=== PATIENT | male | born 1945 | race Caucasian/White ===

== ENCOUNTER 2021-09-10 07:08 | Day surgery (SDC) | payer OTHER ==
[~2021-09-10] VITALS: Ht 177.8 cm; Wt 80.2 kg
[2021-09-10] MEDS ORDERED: METF500 (07:50)
[2021-09-10] MEDS ORDERED: RAMI5 (07:52)
[2021-09-10] MEDS ORDERED: VITAMIN D310 MC4 (07:53)
[2021-09-10] MEDS ORDERED: ATOR20 (07:53)
[2021-09-10] MEDS ORDERED: [UNRECOGNIZED DRUG - CODE] (07:54)
== END 2021-09-10 09:29 | disposition home or self-care (01) ==
LOC: ORSCSDS 07:08
PROVIDERS: Surgery
PROC: 0DJD8ZZ Inspection of Lower Intestinal Tract, Via Natural or Artificial Opening Endoscopic (ICD-10-PCS; principal; 2021-09-10 08:30)
DX: Z12.11 Encounter for screening for malignant neoplasm of colon (principal); E78.5 Hyperlipidemia, unspecified; E11.9 Type 2 diabetes mellitus without complications; I10 Essential (primary) hypertension; Z87.891 Personal history of nicotine dependence; Z79.84 Long term (current) use of oral hypoglycemic drugs; Z79.899 Other long term (current) drug therapy
CPT/HCPCS: 82947; J2704; J7120

== ENCOUNTER 2025-02-14 06:27 | Observation (INO) | payer OTHER ==
[~2025-02-14] VITALS: Ht 180.3 cm; Wt 77.0 kg
[~2025-02-14 06:27] MED LIST: ATOR20 PO; METF500; RAMI5 PO; VITAMIN D310 MC4 PO; [UNRECOGNIZED DRUG - CODE] PO
[2025-02-14 06:47] LABS: BASOPHILS ABSOLUTE AUTO 0.04 K/mm3 (0.00-0.23); BASOPHILS PERCENT AUTO 0 % (0-2); EOSINOPHILS ABSOLUTE AUTO 0.32 K/mm3 (0.00-0.68); EOSINOPHILS PERCENT AUTO 2 % (0-6); Hematocrit 47.9 % (37.0-53.0); Hemoglobin 16.4 g/dL (13.5-17.5); IMMATURE GRAN ABSOLUTE AUTO 0.08 K/mm3 (0.00-0.10); IMMATURE GRAN PERCENT AUTO 0 % (0-1); LYMPHOCYTES ABSOLUTE AUTO 2.25 K/mm3 (0.84-5.20); LYMPHOCYTES PERCENT AUTO 12 % (21-46); MONOCYTES ABSOLUTE AUTO 0.66 K/mm3 (0.16-1.47); MONOCYTES PERCENT AUTO 4 % (4-13); Mean Corpuscular HGB Conc 34.2 g/dL (31.5-36.5); Mean Corpuscular Volume 95 fL (80-100); NEUTROPHILS ABSOLUTE AUTO 14.86 K/mm3 (1.96-9.15); NEUTROPHILS PERCENT AUTO 82 % (41-73); NRBC ABSOLUTE 0.00 K/mm3 (0.00-0.02); NRBC Auto 0.0 /100 WBC (0.0-0.2); Platelet Count 277 K/mm3 (150-400); RDW Coefficient Variation 12.2 % (11.7-14.2); RDW Standard Deviation 42.3 fL (35.1-46.3)
[2025-02-14 07:06] LABS: Alanine Aminotransfer (ALT/SGP 55.0 U/L (12-78); Albumin, Blood 4.3 g/dL (3.4-5.0); Albumin/Globulin Ratio 1.0 (0.8-1.8); Anion Gap 7.0 mmol/L (3-11); Aspartate Aminotrans (AST/SGOT 19.0 U/L (12-37); Bilirubin, Total 1.0 mg/dL (0.1-1.0); Blood Urea Nitrogen 21.0 mg/dL (8-24); CO2, Blood 28.0 mmol/L (21-32); Calcium, Blood 9.5 mg/dL (8.5-10.1); Chloride, Blood 105.0 mmol/L (98-108); Creatinine, Blood 1.02 mg/dL (0.60-1.20); Globulin, Blood 4.3 g/dL (2.2-4.0); Glucose, Blood 191.0 mg/dL (70-99); Potassium, Blood 4.2 mmol/L (3.5-5.5); Sodium, Blood 136.0 mmol/L (136-145); Total Protein, Blood 8.6 g/dL (6.4-8.2)
[2025-02-14] MEDS ORDERED: HydrALAZINE HCl 20 MG / ML 1ML Vial IV PRN (09:50)
[2025-02-14] MEDS ORDERED: FLU VACC TS2025(65UP)/MF59C/PF 45 MCG/0.5 ML SYRINGE IM SCH (09:50)
[2025-02-14 11:57] VITALS: BP 148/66
[2025-02-14 11:59] LABS: CHOL/HDL RATIO 2.7; Cholesterol 133 mg/dL (50-200); HDL Cholesterol 49 mg/dL (>39); LDL/HDL RATIO 1.3; Low Density Lipoprotein Chol 64 mg/dL (0-110); Triglycerides 99 mg/dL (30-160); Very Low Density Lipoprot Chol 19 mg/dL (6-32)
[2025-02-14] MEDS ORDERED: Aminophylline 250MG / 10ML 10 ML Vial ONE (13:27)
[2025-02-14] MEDS ORDERED: CefTRIAXone Sodium 1,000 MG in NS 100 ML IV SCH (15:00)
[2025-02-14] MEDS ORDERED: NS 250 ML IV PRN (15:35)
[2025-02-14 15:37] VITALS: BP 142/68
[2025-02-14] MEDS ORDERED: GLIP5 PO (15:49)
[2025-02-14] MEDS ORDERED: C COMPLEX1000 M1 PO (15:50)
[2025-02-14] MEDS ORDERED: JARDIANCE10 MG PO (15:50)
[2025-02-14] MEDS ORDERED: Aspir 8181 MG PO (15:51)
[2025-02-14] MEDS ORDERED: Insulin Regular 100 UNIT/ML 10ML Vial SC SCH (16:30)
[2025-02-14 17:55] LABS: Influenza A/2009-H1 Not Detected (NOT DETECT); SARS-Cov-2 (COVID-19), BioFire Not Detected (NOT DETECT)
--- NOTE | 2025-02-14 18:35 | NUR ---
END OF SHIFT NOTE PATIENT RESTING IN BED. A&O4, SOME FORGETFULNESS. ABLE TO MAKE NEEDS KNOWN. CALL LIGHT IN REACH, BED IN LOW POSITION. PATIENT AMBULATE TO BATHROOM IND, WILL CALL IF NEEDED FOR HELP WITH LINES AND CORDS. IV INFUSING TO ORDER, LR. PATIENT DENIES NEEDS OR QUESTIONS. NO OTHER CONCERNS FOR THIS SHIFT.
[2025-02-14 20:37] VITALS: BP 158/74
[2025-02-14] MEDS ORDERED: Lactobacil 2-S.Thermo-Bifido 1 1 Cap PO SCH (21:00)
[2025-02-15 00:39] VITALS: BP 146/74
[2025-02-15 05:12] LABS: BASOPHILS ABSOLUTE AUTO 0.03 K/mm3 (0.00-0.23); BASOPHILS PERCENT AUTO 0 % (0-2); EOSINOPHILS ABSOLUTE AUTO 0.15 K/mm3 (0.00-0.68); EOSINOPHILS PERCENT AUTO 1 % (0-6); Hematocrit 41.5 % (37.0-53.0); Hemoglobin 14.6 g/dL (13.5-17.5); IMMATURE GRAN ABSOLUTE AUTO 0.03 K/mm3 (0.00-0.10); IMMATURE GRAN PERCENT AUTO 0 % (0-1); LYMPHOCYTES ABSOLUTE AUTO 2.97 K/mm3 (0.84-5.20); LYMPHOCYTES PERCENT AUTO 25 % (21-46); MONOCYTES ABSOLUTE AUTO 0.80 K/mm3 (0.16-1.47); MONOCYTES PERCENT AUTO 7 % (4-13); Mean Corpuscular HGB Conc 35.2 g/dL (31.5-36.5); Mean Corpuscular Volume 95 fL (80-100); NEUTROPHILS ABSOLUTE AUTO 7.87 K/mm3 (1.96-9.15); NEUTROPHILS PERCENT AUTO 66 % (41-73); NRBC ABSOLUTE 0.00 K/mm3 (0.00-0.02); NRBC Auto 0.0 /100 WBC (0.0-0.2); Platelet Count 234 K/mm3 (150-400); RDW Coefficient Variation 12.1 % (11.7-14.2); RDW Standard Deviation 42.3 fL (35.1-46.3)
[2025-02-15 05:33] LABS: Anion Gap 7.0 mmol/L (3-11); Blood Urea Nitrogen 21.0 mg/dL (8-24); CO2, Blood 27.0 mmol/L (21-32); Calcium, Blood 9.1 mg/dL (8.5-10.1); Chloride, Blood 107.0 mmol/L (98-108); Creatinine, Blood 1.12 mg/dL (0.60-1.20); Glucose, Blood 172.0 mg/dL (70-99); Potassium, Blood 3.9 mmol/L (3.5-5.5); Sodium, Blood 137.0 mmol/L (136-145)
--- NOTE | 2025-02-15 05:33 | NUR ---
HOOP CUTTER SUMMARY PT A&OX4, VSS. ABLE TO COMMUNICATE NEEDS APPROPRIATELY. HAS BEEN ASLEEP FOR MOST OF THE SHIFT. CHEST RISE/RESPIRATIONS NOTED. LR CONTINUES TO INF PER EMAR. REMAINS ON TELE. SR AT 77. ROSI FLORIAN CALLED NURSING STAFF EARLIER TODAY ALERTING UNIT THAT PT SHOULD HAVE BED ALARM ON PT IS IN "EARLY STAGES OF DEMENTIA." BED ALARM PLACED ON FOR PT SAFETY. PT CALLS APPROPRIATELY FOR SBA D/T IV WHEN UP TO USE BATHROOM INTERMITTENTLY. BED RAILS UP X 2, BED IN LOWEST POSITION, BED WHEELS LOCKED, PERSONAL BELONGINGS AND CALL LIGHT WITHIN REACH FOR SAFETY.
[2025-02-15 07:37] VITALS: BP 148/77
[2025-02-15] MEDS ORDERED: Enoxaparin 40 MG/0.4 ML SYR SC SCH (09:00)
[2025-02-15] MEDS ORDERED: VISBIOME 112.51 EACH PO (13:25)
[2025-02-15] MEDS ORDERED: AMOCLA875 PO (13:25)
--- NOTE | 2025-02-15 13:49 | NUR ---
PATIENT LEFT WITH VIA WC. DENIES PAIN OR SOB. VERBALIZED UNDERSTANDING OF DISCHARGE INSTUCTIONS AND ALL QUESTIONS WERE ANSWERED.
== END 2025-02-15 13:53 | disposition home or self-care (01) ==
LOC: ER 06:27 → MEDS 09:41
PROVIDERS: Emergency Medicine; ADMIT Family Medicine
DX: A41.9 Sepsis, unspecified organism (principal); J18.9 Pneumonia, unspecified organism; R65.20 Severe sepsis without septic shock; R07.89 Other chest pain; E11.10 Type 2 diabetes mellitus with ketoacidosis without coma; I10 Essential (primary) hypertension; E78.5 Hyperlipidemia, unspecified; Z87.891 Personal history of nicotine dependence; Z79.84 Long term (current) use of oral hypoglycemic drugs; Z79.899 Other long term (current) drug therapy
CPT/HCPCS: 0202U; 36415; 71045; 78452; 80048; 80053; 80061; 82947; 83605; 83880; 84145; 84484; 85025; 87040; 93005; 93010; 93017; 96361; 96365; 96366; 96367; 96372; 99285-25; A9270; A9500; G0378; J0280; J0456; J0696; J1650; J1815; J2785; J7050; J7120

== ENCOUNTER → 2025-03-08 | Emergency (ER) | payer OTHER ==
[~2025-03-08] VITALS: Ht 180.3 cm; Wt 75.8 kg
[~2025-03-08] MED LIST changes: +AMOCLA875 PO; +Aspir 8181 MG PO; +C COMPLEX1000 M1 PO; +CEFD300 PO; +CefTRIAXone Sodium 1,000 MG in NS 100 ML IV ONE; +GLIP5 PO; +JARDIANCE10 MG PO; +VISBIOME 112.51 EACH PO
[2025-03-08 21:51] LABS: Source, Urine Clean Catch
[2025-03-08 21:53] LABS: BASOPHILS ABSOLUTE AUTO 0.05 K/mm3 (0.00-0.23); BASOPHILS PERCENT AUTO 0 % (0-2); EOSINOPHILS ABSOLUTE AUTO 0.01 K/mm3 (0.00-0.68); EOSINOPHILS PERCENT AUTO 0 % (0-6); Hematocrit 45.4 % (37.0-53.0); Hemoglobin 15.7 g/dL (13.5-17.5); IMMATURE GRAN ABSOLUTE AUTO 0.08 K/mm3 (0.00-0.10); IMMATURE GRAN PERCENT AUTO 0 % (0-1); LYMPHOCYTES ABSOLUTE AUTO 2.02 K/mm3 (0.84-5.20); LYMPHOCYTES PERCENT AUTO 10 % (21-46); MONOCYTES ABSOLUTE AUTO 1.16 K/mm3 (0.16-1.47); MONOCYTES PERCENT AUTO 6 % (4-13); Mean Corpuscular HGB Conc 34.6 g/dL (31.5-36.5); Mean Corpuscular Volume 93 fL (80-100); NEUTROPHILS ABSOLUTE AUTO 17.01 K/mm3 (1.96-9.15); NEUTROPHILS PERCENT AUTO 84 % (41-73); NRBC ABSOLUTE 0.00 K/mm3 (0.00-0.02); NRBC Auto 0.0 /100 WBC (0.0-0.2); Platelet Count 268 K/mm3 (150-400); RDW Coefficient Variation 12.3 % (11.7-14.2); RDW Standard Deviation 42.5 fL (35.1-46.3)
[2025-03-08 22:11] LABS: Bilirubin, Urine Neg (Neg); Glucose Qualitative, Urine 4+ (Neg); Ketones, Urine Neg (Neg); Leukocyte Esterase, Urine 3+ (Neg); Protein, Urine 3+ (Neg); Specific Gravity, Urine 1.015 (1.003-1.022); Urobilinogen, Urine NORM (Normal)
[2025-03-08 22:18] LABS: Alanine Aminotransfer (ALT/SGP 43.0 U/L (12-78); Albumin, Blood 3.8 g/dL (3.4-5.0); Albumin/Globulin Ratio 0.8 (0.8-1.8); Anion Gap 11.0 mmol/L (3-11); Aspartate Aminotrans (AST/SGOT 23.0 U/L (12-37); Bilirubin, Total 1.8 mg/dL (0.1-1.0); Blood Urea Nitrogen 18.0 mg/dL (8-24); CO2, Blood 22.0 mmol/L (21-32); Calcium, Blood 9.6 mg/dL (8.5-10.1); Chloride, Blood 105.0 mmol/L (98-108); Creatinine, Blood 1.12 mg/dL (0.60-1.20); Globulin, Blood 4.6 g/dL (2.2-4.0); Glucose, Blood 181.0 mg/dL (70-99); Potassium, Blood 4.0 mmol/L (3.5-5.5); Sodium, Blood 134.0 mmol/L (136-145); Total Protein, Blood 8.4 g/dL (6.4-8.2)
[2025-03-08 22:20] LABS: Color, Urine Yellow (P-Yellow)
[2025-03-08 22:22] LABS: Red Blood Cells, Urine 0-2 /hpf (0-2); White Blood Cells, Urine 25-50 /hpf (0-5)
[2025-03-08 23:42] VITALS: BP 141/69
== END ==
LOC: ER 21:25
PROVIDERS: Physician Assistant
DX: R33.9 Retention of urine, unspecified (principal); N39.0 Urinary tract infection, site not specified; Z79.899 Other long term (current) drug therapy; Z79.84 Long term (current) use of oral hypoglycemic drugs; Z79.82 Long term (current) use of aspirin; Z88.5 Allergy status to narcotic agent
CPT/HCPCS: 51702; 51798; 80053; 81001; 85025; J0696